=== PATIENT | female | born 1960 | race Caucasian/White ===

== ENCOUNTER 2017-04-11 19:52 | Emergency (ER) | payer OTHER ==
[2017-04-11 22:54] LABS: BASOPHIL 0.1 % (0-2); EOSINOPHIL 0.7 % (0-5); HCT 22.1 % (37.0-47.0); HGB 7.7 g/dl (12.5-16.0); LYMPHOCYTE 13.1 % (15-48); MCH 34.5 pg (25.0-31.0); MCHC 34.8 g/dL (32.0-36.0); MCV 99.1 fL (78.0-100.0); MONOCYTE 14.5 % (0-12); MPV 10.8 fL (6.0-9.5); NEUTROPHIL 71.6 % (41-80); PLT 185 K/uL (150-400); RBC 2.23 M/uL (4.20-5.40); RDW 18.6 % (11.5-14.0); WBC 15.9 K/uL (4.0-10.5)
[2017-04-11 23:02] LABS: INR 1.6 (0.9-1.2); PTT 44.4 SECONDS (24.3-32.1)
[2017-04-11 23:12] LABS: ALBUMIN 2.1 g/dL (3.5-5.0); BILIRUBIN - DIRECT 5.4 mg/dL (0.0-0.2); BILIRUBIN - TOTAL 7.1 mg/dL (0.1-1.0); CREATININE 0.9 mg/dL (0.5-1.0); GLOBULIN (CALCULATION) 3.9 g/dL (2.2-4.2); POTASSIUM 3.7 mmol/L (3.5-5.1)
[2017-04-11 23:13] LABS: LACTIC ACID 1.2 mmol/L (0.5-2.2)
[2017-04-12 00:13] LABS: BILIRUBIN 1+ mg/dL (NEGATIVE); BLOOD 2+ Ery/uL (NEGATIVE); CLARITY CLEAR (CLEAR); COLOR YELLOW (YELLOW); GLUCOSE (U) NORMAL (NORMAL); KETONE (U) NEGATIVE (NEGATIVE); LEUKOCYTES NEGATIVE Leu/uL (NEGATIVE); NITRITE NEGATIVE (NEGATIVE); PROTEIN NEGATIVE (NEGATIVE)
[2017-04-12 00:23] LABS: BACTERIA TRACE
== END 2017-04-12 01:50 | disposition other institution (70) ==
LOC: FER 19:52
PROVIDERS: Emergency Medicine Emergency Medical Services
DX: K74.60 Unspecified cirrhosis of liver (principal); R62.7 Adult failure to thrive; Z90.710 Acquired absence of both cervix and uterus; Z88.0 Allergy status to penicillin; Z79.899 Other long term (current) drug therapy
CPT/HCPCS: 36415; 80053; 81001; 82150; 82248; 83605; 83690; 84484; 85025; 85610; 85730; 93005; J1170; J1940; J2405

== ENCOUNTER 2017-04-12 18:55 | Emergency (ER) | payer OTHER ==
[2017-04-12 20:02] LABS: BASOPHIL 0.1 % (0-2); EOSINOPHIL 1.2 % (0-5); HCT 24.1 % (37.0-47.0); HGB 8.4 g/dl (12.5-16.0); LYMPHOCYTE 16.6 % (15-48); MCH 34.6 pg (25.0-31.0); MCHC 34.9 g/dL (32.0-36.0); MCV 99.2 fL (78.0-100.0); MONOCYTE 12.6 % (0-12); MPV 11.2 fL (6.0-9.5); NEUTROPHIL 69.5 % (41-80); PLT 214 K/uL (150-400); RBC 2.43 M/uL (4.20-5.40); RDW 18.6 % (11.5-14.0); WBC 16.2 K/uL (4.0-10.5)
[2017-04-12 20:23] LABS: ALBUMIN 2.1 g/dL (3.5-5.0); TOTAL PROTEIN 6.1 g/dL (6.4-8.3)
[2017-04-12 20:26] LABS: POTASSIUM 4.5 mmol/L (3.5-5.1)
== END 2017-04-12 20:33 | disposition left against medical advice (07) ==
LOC: FER 18:55
PROVIDERS: Internal Medicine
DX: K74.60 Unspecified cirrhosis of liver (principal); I95.9 Hypotension, unspecified; I25.10 Atherosclerotic heart disease of native coronary artery without angina pectoris; E03.9 Hypothyroidism, unspecified; Z88.0 Allergy status to penicillin; Z79.899 Other long term (current) drug therapy; Z90.49 Acquired absence of other specified parts of digestive tract; Z79.891 Long term (current) use of opiate analgesic
CPT/HCPCS: 36415; 71010; 80053; 85025; 99285

== ENCOUNTER 2017-04-13 09:30 | Emergency (ER) | payer OTHER ==
[2017-04-13 10:29] LABS: BASOPHIL 0.2 % (0-2); EOSINOPHIL 1.6 % (0-5); HCT 26.2 % (37.0-47.0); HGB 9.4 g/dl (12.5-16.0); LYMPHOCYTE 18.5 % (15-48); MCH 36.3 pg (25.0-31.0); MCHC 35.9 g/dL (32.0-36.0); MCV 101.2 fL (78.0-100.0); MONOCYTE 10.9 % (0-12); MPV 11.2 fL (6.0-9.5); NEUTROPHIL 68.8 % (41-80); PLT 253 K/uL (150-400); RBC 2.59 M/uL (4.20-5.40); RDW 18.6 % (11.5-14.0); WBC 16.2 K/uL (4.0-10.5)
[2017-04-13 10:50] LABS: PTT 42.1 SECONDS (24.3-32.1)
[2017-04-13 10:51] LABS: INR 1.38 (0.9-1.2)
[2017-04-13 10:55] LABS: LACTIC ACID 1.4 mmol/L (0.5-2.2)
[2017-04-13 11:09] LABS: BILIRUBIN - TOTAL 6.1 mg/dL (0.1-1.0); CREATININE 1.2 mg/dL (0.5-1.0); GLOBULIN (CALCULATION) 3.6 g/dL (2.2-4.2); POTASSIUM 3.7 mmol/L (3.5-5.1); TOTAL PROTEIN 5.6 g/dL (6.4-8.3)
[2017-04-13 11:10] LABS: PRO-BNP 4114 pg/mL (0-125); TROPONIN T < 0.010 ng/mL
== END 2017-04-13 12:50 | disposition other institution (70) ==
LOC: FER 09:30
PROVIDERS: Emergency Medicine
DX: K74.60 Unspecified cirrhosis of liver (principal); K76.7 Hepatorenal syndrome; K21.9 Gastro-esophageal reflux disease without esophagitis; E03.9 Hypothyroidism, unspecified; Z90.49 Acquired absence of other specified parts of digestive tract; Z88.0 Allergy status to penicillin; Z79.899 Other long term (current) drug therapy
CPT/HCPCS: 36415; 71010; 80053; 82140; 83605; 83690; 83880; 84484; 85025; 85610; 85730; 87040; 93005; P9046